=== PATIENT | male | born 1965 ===

== ENCOUNTER 2019-01-12 19:21 | Emergency (ER) | payer OTHER ==
[~2019-01-12] VITALS: Ht 185.4 cm; Wt 98.6 kg
[2019-01-12] MEDS ORDERED: LEVETIRACETAM 500 MG TABLET PO STA (19:31)
--- NOTE | 2019-01-12 19:45 | NUR ---
BIB EMS FROM [facility], WITNESSED SEIZURE LASTING 2MIN WITH POSTICTAL PERIOD. PT NO A&0 X 4. PT ON MONITOR, EKG COMPLETED. DR MESSER AT BEDSIDE, PT ASSESSMENT REV. AND ORDERS REC'D. IVF INFUSING NOTED, HOWEVER IT IS POSITIONAL. SEIZURE PADS IN PLACE. OFFICER'S AT BEDSIDE.
[2019-01-12] MEDS ORDERED: LORazepam 2 MG/ML, 1ML ONE (19:52)
[2019-01-12] MEDS ORDERED: LEVETIRACETAM 500 MG TABLET ONE (19:53)
[2019-01-12 20:00] LABS: BASOPHILS # (AUTO) 0.11 x10^3/uL (0-0.1); BASOPHILS % (AUTO) 1 % (0-1); EOSINOPHILS # (AUTO) 0.16 x10^3/uL (0-0.4); EOSINOPHILS % (AUTO) 2 % (1-7); LYMPHOCYTES # (AUTO) 1.21 x10^3/uL (1-3.4); LYMPHOCYTES % (AUTO) 15 % (22-44); MD NO; MEAN CORPUSCULAR HEMOGLOBIN 32.8 pg (27.5-34.5); MEAN CORPUSCULAR HGB CONC 33.4 g/dL (33.2-36.2); MEAN CORPUSCULAR VOLUME 98.3 fL (81-97); MEAN PLATELET VOLUME 8.2 fL (7.4-10.4); MONOCYTES # (AUTO) 0.45 x10^3/uL (0.2-0.8); MONOCYTES % (AUTO) 6 % (2-9); NEUTROPHILS # (AUTO) 6.14 x10^3/uL (1.8-6.8); NEUTROPHILS % (AUTO) 76 % (42-75); PLATELET COUNT 271 x10^3/uL (130-400); RED BLOOD COUNT 4.74 x10^6/uL (4.38-5.82); RED CELL DISTRIBUTION WIDTH 13.8 % (9.4-14.8)
[2019-01-12] MEDS ORDERED: LORazepam 2 MG/ML, 1ML IVPush ONE (20:00)
[2019-01-12] MEDS ORDERED: SODIUM CHLORIDE FLUSH 10ML SYR IVF ONE (20:00)
[2019-01-12] MEDS ORDERED: SODIUM CHLORIDE 0.9% 1,000ML IVBOLUS ONE (20:00)
[2019-01-12 20:10] LABS: ALBUMIN 3.9 g/dL (3.4-5.0); ANION GAP 6 mmol/L (5-15); CALCIUM 8.5 mg/dL (8.5-10.1); CHLORIDE 110 mmol/L (98-107); CREATININE 0.79 mg/dL (0.7-1.3)
[2019-01-12 20:44] VITALS: BP 147/100
--- NOTE | 2019-01-12 20:50 | NUR ---
PT AWARE OF NEED TO PROVIDE URINE SAMPLE, URINAL AT BEDSIDE.
--- NOTE | 2019-01-12 21:05 | NUR ---
REPORT RECEIVED FROM ZAC CISSE, ASSUMING CARE OF PT AT THIS TIME. AWAITING UA RESULTS THEN PT TO BE DCd BACK TO [facility] WITH OFFICERS
--- NOTE | 2019-01-12 21:06 | NUR ---
AMARAAR RPT TO [facility]. PLAN FOR D/C DISCUSSED.
[2019-01-12 21:21] LABS: AMPHETAMINE SCREEN, URINE Negative (Negative); BARBITURATE SCREEN, URINE Negative (Negative); BENZODIAZEPINE SCREEN, URINE Negative (Negative); CANNABINOID SCREEN, URINE Negative (Negative); COCAINE SCREEN, URINE Negative (Negative); METHADONE SCREEN, URINE Negative (Negative); OPIATE SCREEN, URINE Negative (Negative)
== END 2019-01-12 21:51 | disposition home or self-care (01) ==
LOC: ED 19:46
DX: G40.309 Generalized idiopathic epilepsy and epileptic syndromes, not intractable, without status epilepticus (principal); I10 Essential (primary) hypertension
CPT/HCPCS: 36415; 71045; 80048; 80307; 82040; 85025; 93005; 96374; 99284; J2060; J7030